=== PATIENT | male | born 1945 | race Caucasian/White ===

== ENCOUNTER → 2016-11-02 | Outpatient (CLI) | payer MEDICARE | LOC: GMAM 10:36 | PROVIDERS: ATTEND Family Medicine | DX: R53.82 Chronic fatigue, unspecified (principal) ==

== ENCOUNTER → 2016-11-12 | Outpatient (CLI) | payer MEDICARE, BC ==
--- NOTE | 2016-11-12 10:22 | CT ---
EXAM DESCRIPTION: Chest w/Contrast CLINICAL HISTORY: ABNORMAL CXR COMPARISON: None. TECHNIQUE: Post contrasted multidetector CT imaging of the chest. Multiplanar reconstructions were provided. FINDINGS: The axilla are clear. Supraclavicular soft tissues are unremarkable. Subcutaneous infusing catheter noted. Tip is in the SVC. Heart size is unremarkable. No pericardial disease. No lymphadenopathy within the mediastinum. No hilar lymphadenopathy. There is a spiculated masslike area seen lateral to the right hilum within the right upper lobe. This measures 2.2 cm in diameter. Minimal pleural thickening noted. IMPRESSION: Today's exam demonstrates a wedge-shaped spiculated area consolidation within the base of the right upper lobe. The differential based on the shape and border could include focal pneumonia, a pulmonary infarct from pulmonary embolus or a malignancy. After treatment I would recommend close interval follow-up with repeat CT in 2-3 months to document resolution. Electronically signed by: Fernando Paula MD 11/12/2016 10:21 AM CDT
== END | disposition home or self-care (01) ==
LOC: CT 08:34
PROVIDERS: ATTEND Family Medicine
DX: R93.8 Abnormal findings on diagnostic imaging of other specified body structures (principal)

== ENCOUNTER 2016-11-13 23:19 | Inpatient (IN) | payer MEDICARE, BC ==
--- NOTE | 2016-11-13 23:45 | ED.PDOC ---
History of Present Illness - General Chief Complaint: Respiratory Problem Stated Complaint: cough,sob Time Seen by Provider: 11/13/16 23:37 Source: patient Exam Limitations: no limitations - History of Present Illness Initial Comments: Janak Patel 71 y/o male with history of afib and seasonal allergies dm2 stated that he had been having non productive cough for 10 days and was seen by his md this morning regarding his chest CT report showing right upper lobe spiculated mass differential dx focal pna,pulmonary infarct or malignancy.He was sent home no medication prescribed and tonight cough got worse and getting more sob and had low grade fever decided to come to er. Timing/Duration: other - 10 days ago Severity: moderate Possible Cause: chronic episodes Improving Factors: nothing Worsening Factors: nothing Associated Symptoms: fever/chills, shortness of breath, wheezing Respiratory Risk Factors: exposure to allergen Allergies/Adverse Reactions: Allergies NO KNOWN ALLERGY Allergy (Verified 11/13/16 23:44) Home Medications: Ambulatory Orders Carvedilol [Coreg] 3.125 mg PO BID 07/01/15 Fluoxetine HCl [Prozac] 30 mg PO DAILY 07/01/15 Lasix mg PO DAILY 07/01/15 Lisinopril 20 mg PO DAILY 07/01/15 Omeprazole Magnesium [Prilosec Otc] 20 mg PO ACBK 07/01/15 Sotalol HCl [Betapace] 60 mg PO BID 07/01/15 Warfarin Sodium [Coumadin] 5 mg PO SUTUTHSA@2100 07/01/15 Warfarin Sodium [Coumadin] 7.5 mg PO MOWEFR@2100 07/01/15 Review of Systems - Review of Systems Constitutional: States: fever EENTM: States: nose congestion Respiratory: States: cough, short of breath Cardiology: States: no symptoms reported Gastrointestinal/Abdominal: States: no symptoms reported Genitourinary: States: no symptoms reported Musculoskeletal: States: no symptoms reported Skin: States: no symptoms reported Neurological: States: no symptoms reported Endocrine: States: no symptoms reported Past Medical History (General) - Patient Medical History Hx Seizures: No Hx Stroke: No Hx Asthma: No Hx of COPD: No Hx Cardiac Disorders: Yes - A-Fib, CHF Hx Congestive Heart Failure: Yes Hx Pacemaker: Yes Hx Hypertension: Yes Hx Diabetes: Yes Hx MRSA: No Hx Other PMH: Yes - seasonal allergies Surgical History: other - aicd/pacemaker;nasal polyp surgery - Vaccination History Hx Tetanus, Diphtheria Vaccination: Yes - Social History Hx Tobacco Use: Yes - stopped age 27 years Hx Alcohol Use: Yes - quit 3 years ago Hx Substance Use: Yes - cocaine Hx Physical Abuse: No Hx Emotional Abuse: No - Activities of Daily Living Patient Lives Alone: No - family Grooming Ability: Independent Eating (Feeding) Ability: Independent Toileting Ability: Independent - Female History Patient : No Family Medical History - Family History Father Living Status: Age at (years of age): 60 Cause of : DC Hx Family Asthma: Yes - mom Hx Family Hypertension: Yes Hx Cardiac Disease: Yes - dad Mother Living Status: Hx Family Asthma: Yes Physical Exam - Physical Exam General Appearance: Alert, No apparent distress Eye Exam: bilateral normal ENT Exam: normal ENT inspection, hearing grossly normal, TMs normal, pharynx normal Neck: non-tender, full range of motion, supple Respiratory: chest non-tender, decreased breath sounds, wheezing Cardiovascular/Chest: normal peripheral pulses, regular rate, rhythm, no edema, no gallop, no JVD, no murmur Gastrointestinal/Abdominal: normal bowel sounds, non tender, soft, no organomegaly Extremity: normal range of motion, non-tender, normal inspection, no pedal edema , no calf tenderness Neurologic: no motor/sensory deficits, alert, normal mood/affect, oriented x 3 Skin Exam: normal color, warm/dry Lymphatic: no adenopathy Progress - Results/Orders Results/Orders: 11/13/16 23:47 SVN/Updraft Therapy .ONCE 11/13/16 23:51 BRI IFA Screen w/Reflex Stat RHEUMATOID FACTOR Routine 11/13/16 23:55 IV Care:Saline Lock per Protoc QSHIFT 11/14/16 09:00 [facility] Daily Laboratory Results WBC 12.2 K/mm3 (4.8-10.8) H 11/14/16 00:10 RBC 5.46 M/mm3 (4.70-6.10) 11/14/16 00:10 Hgb 14.6 gm/dL (14.0-18.0) 11/14/16 00:10 Hct 44.9 % (42.0-52.0) 11/14/16 00:10 MCV 82.3 fl (80.0-94.0) 11/14/16 00:10 MCH 26.8 pg (27.0-31.0) L 11/14/16 00:10 MCHC 32.6 g/dL (33.0-37.0) L 11/14/16 00:10 RDW 15.6 % (11.5-14.5) H 11/14/16 00:10 Plt Count 188 K/mm3 (130-400) 11/14/16 00:10 MPV 9.7 fl (7.40-10.4) 11/14/16 00:10 Absolute Neuts (auto) 9.50 K/uL (1.8-6.8) H 11/14/16 00:10 Absolute Lymphs (auto) 1.50 K/uL (1.0-3.4) 11/14/16 00:10 Absolute Monos (auto) 0.90 K/uL (0.2-0.8) H 11/14/16 00:10 Absolute Eos (auto) 0.20 K/uL (0.0-0.4) 11/14/16 00:10 Absolute Basos (auto) 0.10 K/uL (0.0-0.1) 11/14/16 00:10 Neutrophils % 78.2 % (42.0-78.0) H 11/14/16 00:10 Lymphocytes % 12.6 % (20.0-50.0) L 11/14/16 00:10 Monocytes % 7.1 % (2.0-9.0) 11/14/16 00:10 Eosinophils % 1.4 % (1.0-5.0) 11/14/16 00:10 Basophils % 0.7 % (0.0-2.0) 11/14/16 00:10 ESR 12 mm/hr (0-20) 11/14/16 00:10 PT 25.1 SECONDS (9.4-12.5) H* 11/14/16 00:10 INR 2.240 11/14/16 00:10 Sodium 136 mmol/L (135-145) 11/14/16 00:10 Potassium 4.1 mmol/L (3.6-5.0) 11/14/16 00:10 Chloride 105 mmol/L (101-111) 11/14/16 00:10 Carbon Dioxide 23 mmol/L (21-31) 11/14/16 00:10 Anion Gap 12.1 (12-18) 11/14/16 00:10 BUN 15 mg/dL (7-18) 11/14/16 00:10 Creatinine 0.93 mg/dL (0.6-1.3) 11/14/16 00:10 BUN/Creatinine Ratio 16.1 (10-20) 11/14/16 00:10 Random Glucose 130 mg/dL (70-105) H 11/14/16 00:10 Serum Osmolality 274.5 mOsm/L (275-295) L 11/14/16 00:10 Calcium 9.0 mg/dL (8.4-10.2) 11/14/16 00:10 Total Bilirubin 0.8 mg/dL (0.2-1.0) 11/14/16 00:10 AST 20 IU/L (10-42) 11/14/16 00:10 ALT 17 IU/L (10-60) 11/14/16 00:10 Alkaline Phosphatase 62 IU/L (42-121) 11/14/16 00:10 B-Natriuretic Peptide 462.0 pg/ml (0-100) H* 11/14/16 00:10 Serum Total Protein 7.4 gm/dL (6.4-8.2) 11/14/16 00:10 Albumin 3.8 g/dl (3.2-5.5) 11/14/16 00:10 Globulin 3.6 gm/dL (2.3-3.5) H 11/14/16 00:10 Albumin/Globulin Ratio 1.1 (1.1-1.9) 11/14/16 00:10 - EKG/XRAY/CT XRAY: chest - bilateral interstitial and airspace opcification multifocal pneumonia Departure - Departure Clinical Impression: Atrial fibrillation with normal ventricular rate, correction current use of anticoagulant therapy Pneumonia Qualifiers: Pneumonia type: due to unspecified organism Laterality: bilateral Lung location : unspecified part of lung Qualifier Code: (J18.9) Pneumonia, unspecified organism Time of Disposition: 01:32 - D/W Dr. Hernandez-HOSPITALIST Disposition: Admit Patient Condition: Fair Referrals: Noe Ahuja MD [Primary Care Provider] - 1-2 Weeks Home Medications: Ambulatory Orders Carvedilol [Coreg] 3.125 mg PO BID 07/01/15 Fluoxetine HCl [Prozac] 30 mg PO DAILY 07/01/15 Lasix mg PO DAILY 07/01/15 Lisinopril 20 mg PO DAILY 07/01/15 Omeprazole Magnesium [Prilosec Otc] 20 mg PO ACBK 07/01/15 Sotalol HCl [Betapace] 60 mg PO BID 07/01/15 Warfarin Sodium [Coumadin] 5 mg PO SUTUTHSA@209907/01/15 Warfarin Sodium [Coumadin] 7.5 mg PO MOWEFR@209907/01/15
[2016-11-13] MEDS ORDERED: IPRATROPIUM/ALBUTEROL 3 ML VIAL NEB ONE (23:46)
[2016-11-13] MEDS ORDERED: methylPREDNISolone SODIUM SUC 125 MG/2 ML VIAL IV ONE (23:55)
[2016-11-14] MEDS ORDERED: IPRATROPIUM/ALBUTEROL 3 ML VIAL NEB ONE ×3 (00:30→01:33)
--- NOTE | 2016-11-14 00:35 | RAD ---
EXAM: Chest,1 View CLINICAL INDICATION: 71-year-old male with cough. TECHNIQUE: Single view, AP portable chest was obtained. COMPARISON: 07/01/2015. FINDINGS: Stable cardiac and mediastinal silhouette. Heart size is top normal. Pacemaker device overlies and obscures portions of the the LEFT hemithorax with leads intact at the level of the battery pack, stable in course and termination. Tortuous thoracic aorta. Diffuse bilateral basilar airspace and interstitial opacification raising the concern for edema versus multifocal pneumonia. No gross pneumothoraces or large pleural effusion. The RIGHT costophrenic angle is not included in the [id number] of the examination. The visualized bones are within normal limits. IMPRESSION: Bilateral interstitial and airspace opacification raising the concern for multifocal pneumonia versus edema. Please correlate with patient clinical findings and follow-up for resolution. Electronically signed by: Noris Kruger MD 11/14/2016 12:34 AM CDT
[2016-11-14] MEDS ORDERED: cefTRIAXone SODIUM 1 GM in SODIUM CHL 0.9% 50ML MIN-BAG+ 50 ML IVPB ONE (01:39)
[2016-11-14] MEDS ORDERED: DOXYCYCLINE HYCLATE CAP 100 MG CAP PO ONE (01:42)
[2016-11-14] MEDS ORDERED: cefTRIAXone SODIUM 1 GM VIAL ONE ×3 (01:46→23:27)
[2016-11-14] MEDS ORDERED: SODIUM CHL 0.9% 50ML MIN-BAG+ 50 ML IVPB ONE ×3 (01:47→23:26)
[2016-11-14] MEDS ORDERED: MAGNESIUM HYDROXIDE 30 ML UD PO PRN (02:16)
[2016-11-14] MEDS ORDERED: HYDROcodone 5MG/APAP 325MG 1 EA TAB PO PRN (02:16)
[2016-11-14] MEDS ORDERED: ACETAMINOPHEN 325 MG TAB PO PRN (02:16)
[2016-11-14] MEDS ORDERED: LEVALBUTEROL NEBS 1.25 MG/3 ML VIAL INH PRN (02:16)
[2016-11-14] MEDS ORDERED: IBUPROFEN 400 MG TAB PO PRN (02:16)
[2016-11-14] MEDS ORDERED: SODIUM CHLORIDE 0.9% (FLUSH) 10 ML SYG IV PRN (02:16)
--- NOTE | 2016-11-14 02:28 | HP ---
SUPERVISING PHYSICIAN: Gareth Jeffrey M.D. CHIEF COMPLAINT: Cough and shortness of breath. HISTORY OF PRESENT ILLNESS: Mr. Patel is a 71 year-old male patient that has a history of atrial fibrillation and diabetes. He noted that he had started having a nonproductive cough for the last 10 days. He had been seen in the office with Dr. Jeffrey the previous day regarding followup on a chest x-ray having a CT of the chest for concerns for a right upper lobe spiculated mass. Questionable differential was focal pulmonary embolism versus pulmonary infarct or malignancy. He went home and the night of admission started developing a cough that worsened and he became short of breath, and had a low-grade fever at home at which time he presented to the Emergency Department. In the Emergency Department, a chest x-ray was completed and per radiology interpretation showed bilateral interstitial airspace opacification with concerns for multifocal pneumonia versus edema. His laboratory studies showed a mildly elevated white count of 12.2 with an early left shift. He also had an elevated BNP at 462. Initially in the Emergency Department he presented afebrile with a temperature of 99.5 showing saturations of 86% on room air. After breathing treatments and supplemental oxygen with nasal cannula, he improved to 93. Given the fact that he had concerns for radiographic studies showing possible pneumonia versus edema having a history of congestive heart failure with the last echocardiogram noted to be in 2013 showing an ejection fraction of 21%, the patient was admitted to continuation of treatment and evaluation. He was admitted to the Medical/Surgical floor in stable condition. PAST MEDICAL HISTORY: 1. Congestive heart failure with last estimated ejection fraction of 21 to 25 % in July 2015. 2. Hyperlipidemia. 3. Hypertension. 4. Myocardial infarction in 2012. 5. History of deep venous thrombosis of the upper extremity. 6. History of atrial fibrillation currently on Xarelto. 7. History of hiatal hernia. 8. Right upper lung mass noted 11/[address] Jeffrey. 9. Type 2 diabetes mellitus on oral therapy. 10. Gastroesophageal reflux disease. PAST SURGICAL HISTORY: 1. Cataract removal. 2. Nasal polypectomy. 3. Tonsillectomy and adenoidectomy. 4. Pacemaker defibrillator implantation. HOME MEDICATIONS: 1. Betapace 80 mg twice daily. 2. Metformin 500 mg daily. 3. Lisinopril 20 mg daily. 4. Omeprazole 20 mg at breakfast. 5. Prozac 30 mg daily. 6. Xarelto 20 mg daily. 7. Lasix 20 mg once daily. 8. Coreg 6.25 mg twice daily. ALLERGIES: NO KNOWN DRUG ALLERGIES. FAMILY HISTORY: Mother at age 72 from pneumonia. Father at age 60 from a myocardial infarction. SOCIAL HISTORY: The patient lives in [place], [place]. He is a retired master chef. He is . He does have a history of 20 pack per year history of smoking, quit at age 47. Denies any recent alcohol usage having quit in 2012. REVIEW OF SYSTEMS: CONSTITUTIONAL: Noted fever subjective at home. HEENT: Notes nasal congestion. No sore throat or headache. RESPIRATORY: Positive as noted in the History of Present Illness with a nonproductive cough and significant shortness of breath with low O2 on room air. CARDIOVASCULAR: Lengthy history of myocardial infarctions, congestive heart failure and atrial fibrillation, but denies any syncopal episodes, chest pains, palpitations. GENITOURINARY: Denies any increase in frequency, dysuria or other urinary symptoms. NEUROLOGIC: Denies any vision changes, headaches, syncopal episodes or neurological deficits. PHYSICAL EXAMINATION: VITAL SIGNS: Temperature on admission was 99.5, pulse 101, blood pressure 141/ 83, satting 86 to 89% on room air with respirations between 18 to 22 with obvious shortness of breath initially. Upon admission to the Medical/Surgical floor, the patient was afebrile with temperature 98, pulse 89, blood pressure 120/79, O2 saturations were showing 94% on nasal cannula at rest with 1 liter. Admission weight 110.4 kg. GENERAL: The patient appears to be well nourished, well hydrated and is in no acute distress at time of exam. He is alert and oriented. HEENT: Tympanic membranes are clear bilaterally. Oropharynx is pink with mucosal membranes moist. NECK: No jugular venous distention. Neck is supple with full range of motion. CHEST: Lung sounds are decreased towards the bases bilaterally but no obvious rhonchi, wheezing or rales are noted. CARDIOVASCULAR: Regular rate and rhythm without any appreciable murmurs, gallops, or rubs. ABDOMEN: Obese but soft, non-tender. Positive bowel sounds. EXTREMITIES: No clubbing, cyanosis or edema. NEUROLOGIC: Cranial nerves II-XII are grossly intact. Facial features are symmetrical. Extraocular movements are within normal limits. There is no nystagmus. There is no notable motor or sensory deficits. He is alert and oriented times three. LABORATORY: White count on admission was 12.2, hemoglobin 14.6, hematocrit 44.9 , platelet count 188,000. Differential shows a left shift. Coagulation studies showed an INR of 2.24 with PT of 25.1. Chemistries show normal electrolytes with potassium 4.1, BUN 15, creatinine 0.9, glucose 130. Liver functions show to be within normal limits with BNP that was elevated at 462. Urinalysis showed 100 glucose with 15 ketones. Microscopic showed to be within normal limits. MICROBIOLOGY: Blood culture is pending times 2. Sputum culture is pending. RADIOLOGY: Chest x-ray on admission to the Emergency Department per radiology interpretation single view chest shows bilateral interstitial and airspace opacification raising concerns for multifocal pneumonia versus edema. ASSESSMENT: 1. Bibasilar pneumonia with the patient showing hypoxemia on admission versus acute exacerbation of congestive heart failure. 2. Acute on chronic congestive heart failure secondary to nonischemic cardiomyopathy with last echocardiogram in 2015 showing an ejection fraction of 35%. 3. Atrial fibrillation with current normal ventricular rate on watermelon inspector anticoagulant therapy with Coumadin and implanted defibrillator pacemaker. He has an ICD in place. 4. Hypertension. 5. Diabetes mellitus type 2 on oral therapy. 6. Gastroesophageal reflux disease. 7. History of recent abnormal CT of the chest indicating a spiculated mass right upper lobe being followed in the outpatient setting by Dr. Jeffrey. 8. Leukocytosis with concerns for early development of pneumonia likely community acquired requiring oxygen supplementation and bronchodilator therapy. PLAN: The patient will be admitted to the hospital for continuation of treatment with concerns for development of pneumonia versus underlying pulmonary edema from acute exacerbation of congestive heart failure. He will be given an extra dose of Lasix this morning IV 40 mg and closely monitored, and also placed on a fluid restriction less than 1500 mL for a 24 hour period. He will also be started on antibiotics which were initiated in the Emergency Department after blood cultures were completed which include Rocephin and Levaquin. He will be given q.i.d. DuoNeb treatments and aggressive pulmonary hygiene, and await culture results from the sputum. Anticipate length of stay to be 2 to 3 days. Once the patient is clinically improved and able to be discharged to continue with outpatient treatment plan, he will need close clinical followup with his primary care physician, Dr. Jeffrey. Until then, will follow the patient closely and treat appropriately. #[id number] and [id number] [facility]
[2016-11-14] MEDS ORDERED: AZITHROMYCIN 250 MG TAB PO SCH (02:30)
[2016-11-14] MEDS ORDERED: IV SET AND CAP CHANGE INJ INJ SCH (02:30)
[2016-11-14] MEDS ORDERED: SODIUM CHLORIDE 0.9% 1000ML 1,000 ML IVS PRN (02:39)
[2016-11-14] MEDS: levoFLOXacin 500MG IV 500 MG in PREMIX BAG 1 BAG IVPB SCH (03:00)
[2016-11-14] MEDS ORDERED: levoFLOXacin 500MG IV 100 ML IVPB ONE ×2 (03:01→23:27)
[2016-11-14] MEDS: OMEPRAZOLE CAP 20 MG CAP PO SCH (05:48)
[2016-11-14] MEDS ORDERED: LISINOPRIL 10 MG TAB ONE (07:24)
[2016-11-14] MEDS ORDERED: FUROSEMIDE INJ 40 MG/4 ML VIAL IV ONE (08:20)
[2016-11-14] MEDS: IPRATROPIUM/ALBUTEROL 3 ML VIAL INH SCH ×4 (08:33→20:28)
[2016-11-14] MEDS ORDERED: FUROSEMIDE 40 MG TAB PO SCH (09:00)
[2016-11-14] MEDS ORDERED: SOTALOL HCL 60 MG PO SCH (09:00)
[2016-11-14] MEDS: CARVEDILOL 3.125 MG TAB PO SCH ×3 (09:14→23:04)
[2016-11-14] MEDS: SODIUM CHLORIDE 0.9% (FLUSH) 10 ML SYG IV SCH ×2 (09:14→20:45)
[2016-11-14] MEDS: LISINOPRIL 10 MG TAB PO SCH (09:14)
[2016-11-14] MEDS: SOTALOL 80 MG TAB PO SCH ×2 (10:51→20:45)
[2016-11-14] MEDS: cefTRIAXone SODIUM 1 GM in SODIUM CHL 0.9% 50ML MIN-BAG+ 50 ML IVPB SCH (14:30)
[2016-11-14] MEDS ORDERED: WARFARIN SODIUM 5 MG TAB ONE (19:36)
[2016-11-14] MEDS ORDERED: WARFARIN SODIUM 2.5 MG TAB ONE (19:36)
[2016-11-14] MEDS ORDERED: SODIUM CHLORIDE 0.9% 1000ML 1,000 ML ONE (19:38)
[2016-11-14] MEDS ORDERED: WARFARIN SODIUM 2.5 MG TAB PO SCH (21:00)
[2016-11-14] MEDS ORDERED: WARFARIN SODIUM 7.5 MG PO SCH (21:00)
[2016-11-14] MEDS ORDERED: WARFARIN SODIUM 5 MG TAB PO SCH (21:00)
--- NOTE | 2016-11-14 22:43 | PCM.CORE ---
Physician DVT/VTE - Prophylaxis Currently: Patient already on anticoagulation therapy - Nurse DVT Assessment & Total Each Risk Factor Represents 2 Points: Age 60-74 Each Risk Factor is 1 Point: Obesity (BMI >25) DVT Assessment Score: 3 - 3-4 High Risk Treatments: Early Ambulation *, Sequential Compression Device
[2016-11-14] MEDS ORDERED: RIVAROXABAN 10 MG TAB ONE (22:53)
[2016-11-14] MEDS: [UNRECOGNIZED DRUG - OTHER] PO SCH (22:58)
[2016-11-14] MEDS ORDERED: NON-FORMULARY MEDICATION 1 EA MIS (Carvedilol [Coreg] 6.25 MG) PO SCH (23:00)
[2016-11-14] MEDS ORDERED: metFORMIN HCL 500 MG TAB PO SCH (23:00)
[2016-11-14] MEDS: RIVAROXABAN 15 MG TAB PO ONE ×2 (23:03→23:12)
[2016-11-14] MEDS ORDERED: RIVAROXABAN 10 MG TAB PO SCH (23:30)
[2016-11-15] MEDS: cefTRIAXone SODIUM 1 GM in SODIUM CHL 0.9% 50ML MIN-BAG+ 50 ML IVPB SCH ×2 (01:28→13:56)
[2016-11-15] MEDS ORDERED: diphenhydrAMINE HCL 25 MG CAP PO ONE (01:34)
[2016-11-15] MEDS: levoFLOXacin 500MG IV 500 MG in PREMIX BAG 1 BAG IVPB SCH (02:38)
[2016-11-15] MEDS: OMEPRAZOLE CAP 20 MG CAP PO SCH (06:19)
--- NOTE | 2016-11-15 07:01 | RAD ---
Clinical History : Pneumonia , MAIN Exam : PA and lateral views of the chest 11/15/2016 7:00 AM CDT Comparisons : Portable AP view of the chest November 14, 2016 Findings : There is a stable focal airspace opacity in the right mid lung laterally. There is blunting of the bilateral costophrenic angles consistent with trace pleural effusions. . The heart is stable in size. The mediastinal contours are normal in appearance. There is a left chest [address] The thoracic spine is age appropriate. The shoulders are unremarkable. Limited evaluation of the upper abdomen demonstrates no gross abnormalities. Impression: 1. Stable focal airspace opacity in the right mid lung laterally. 2. Trace bilateral pleural effusions. Electronically signed by: Jonn Hernandez MD 11/15/2016 7:01 AM CDT
[2016-11-15] MEDS: IPRATROPIUM/ALBUTEROL 3 ML VIAL INH SCH ×2 (07:40→12:35)
[2016-11-15] MEDS ORDERED: FLUoxetine HCL 20 MG CAP ONE (08:26)
[2016-11-15] MEDS ORDERED: FLUoxetine HCL 10 MG CAP PO ONE (08:26)
[2016-11-15] MEDS ORDERED: CARVEDILOL 3.125 MG TAB PO SCH (09:00)
[2016-11-15] MEDS ORDERED: metFORMIN HCL 500 MG TAB PO SCH (09:00)
[2016-11-15] MEDS ORDERED: FLUoxetine HCL 20 MG CAP PO SCH ×2 (09:00)
[2016-11-15] MEDS ORDERED: FLUoxetine HCL 10 MG CAP PO SCH (09:00)
[2016-11-15] MEDS: [UNRECOGNIZED DRUG - OTHER] PO SCH (09:35)
[2016-11-15] MEDS: LISINOPRIL 10 MG TAB PO SCH (09:35)
[2016-11-15] MEDS: SODIUM CHLORIDE 0.9% (FLUSH) 10 ML SYG IV SCH (09:36)
[2016-11-15] MEDS: SOTALOL 80 MG TAB PO SCH (09:36)
[2016-11-15] MEDS ORDERED: ALUM & MAG HYDROX-SIMETHICONE 30 ML UD PO PRN (10:37)
[2016-11-15 10:42] VITALS: TEMP 97
[2016-11-15] MEDS ORDERED: cefTRIAXone SODIUM 1 GM VIAL ONE (12:49)
[2016-11-15] MEDS ORDERED: SODIUM CHL 0.9% 50ML MIN-BAG+ 50 ML IVPB ONE (12:49)
[2016-11-15 14:50] VITALS: BP 116/77; O2SAT 94
[2016-11-15] MEDS ORDERED: XARELTO 20 MG PO SCH (21:00)
[2016-11-15] MEDS ORDERED: WARFARIN SODIUM 5 MG TAB PO SCH (21:00)
--- NOTE | 2016-11-18 21:47 | DS ---
SUPERVISING PHYSICIAN: Gareth Jeffrey M.D. DISCHARGE DIAGNOSIS: 1. Bibasilar pneumonia with the patient showing hypoxemia on admission versus exacerbation of his congestive heart failure felt to be more likely related to congestive heart failure. 2. Acute on chronic congestive heart failure secondary to nonischemic cardiomyopathy with last echocardiogram in 2016 showing an ejection fraction of 35%. 3. Atrial fibrillation with admission EKG showing normal ventricular rate having been on intermediate manager anticoagulation therapy with Coumadin as well as an ICD in place. 4. Hypertension. 5. Diabetes mellitus type 2 on oral therapy. 6. Gastroesophageal reflux disease. 7. History of recent abnormal CT of the chest showing a spiculated mass of the right upper lobe that has been followed in the outpatient setting by Dr. Jeffrey. 8. Leukocytosis with initial concerns for the development of pneumonia which was likely community acquired requiring ongoing oxygen supplementation and bronchodilator therapy. HISTORY OF PRESENT ILLNESS: Mr. Patel is a 71 year-old male patient that has a history of atrial fibrillation and diabetes. He noted that he had started having a nonproductive cough 10 days previous to admission. He had been seen in the office by Dr. Jeffrey the previous day regarding followup on a chest x-ray and then had a CT of the chest with concerns for a right upper lobe spiculated mass. Questionable differential was focal pulmonary embolism versus pulmonary infarct or malignancy. He went home and the night of admission started developing a cough that worsened and he became short of breath as well as had a low-grade fever at home at which time he presented to the Emergency Department. In the Emergency Department, a chest x-ray was completed and per radiology interpretation showed bilateral interstitial airspace opacification with concerns for multifocal pneumonia versus edema. His laboratory studies showed a mildly elevated white count of 12.2 with an early left shift. He also had an elevated BNP at 462. Initially in the Emergency Department he presented afebrile with a temperature of 99.5 showing saturations of 86% on room air. After breathing treatments and supplemental oxygen with nasal cannula, he improved to 93%. Given the fact that there were concerns for radiographic studies showing possible pneumonia versus edema and having a history of congestive heart failure with the last echocardiogram noted to be in 2016 showing an ejection fraction of 21%, the patient was admitted for continuation of treatment and evaluation. He was admitted to the Medical/Surgical floor in stable condition. LABORATORY STUDIES: White count was elevated on admission and remained so through discharge at 12.4. Hemoglobin and hematocrit were stable at 13.4 and 40.3, platelet count 178,000. He did have a left shift that was resistant. Coagulation studies showed PT 25.1 on admission with INR of 2.24 with discharge INR of 1.6. Chemistries showed sodium 133 at discharge with potassium 4.4, BUN 16, creatinine 0.86, calcium 8.3. He did have a BNP elevated at 462. Liver functions otherwise were within normal limits. Urinalysis showed 100 glucose and 15 ketones. Microscopic showed to be within normal limits. He had a rheumatoid factor that was 10 and an BRI screen that was negative. Blood cultures times 2 remained negative at 4 days. No sputum culture was ever submitted. RADIOLOGY: Initial chest x-ray in the Emergency Department showed per radiology interpretation bilateral interstitial and airspace opacification raising concerns for multifocal pneumonia versus edema. This was followed-up with a repeat chest x-ray on the morning of discharge on 11/15/16 and per radiology interpretation showed stable focal airspace opacification in the right middle lung laterally and a trace of bilateral pleural effusions. HOSPITAL COURSE: Mr. Patel was admitted from the Emergency Department as noted for concerns for bilateral pneumonia versus pulmonary edema. He was initially started on prednisone in the Emergency Department as well as bronchodilator therapy with DuoNeb treatments as well as antibiotic coverage with Levaquin and Azithromycin. He was given Lasix 40 mg IV the morning of admission and had good diuresis. His Xarelto was continued as previous to admission and all other medications as well. He did well clinically and was felt well enough to be discharged on the morning of discharge as it was felt that his symptomology was secondary to acute on chronic congestive heart failure with some pulmonary edema, less likely a pneumonia process. However, given the fact that he did have a slightly elevated white count, antibiotics were continued at time of discharge. PLAN: Mr. Patel was discharged on 11/15/16 to have close clinical followup with Dr. Jeffrey in 2 weeks or earlier if needed and to have close clinical followup arranged through Dr. Jeffrey's office with his pharmacy director, Dr. Cardenas in 1 to 2 weeks, again earlier if needed. He was instructed to resume his home medications as instructed and return to the hospital should he have concerning symptoms or failure to show any improvement. He is encourage to restrict his daily fluids to less than 1800 mL in a 24 hour period. He was started on new prescriptions at time of discharge to include: 1. Potassium chloride, K-Dur 20 mEq daily at breakfast, #30. 2. Lasix 20 mg daily, #30. Continue with his antibiotic therapy to include Levaquin 500 mg for a total of 8 days. All other medications were resumed as per prior to admission. He was discharged with diet to include low fat, low salt, cardiac diet. Activity was to increase activity as tolerated, to do no strenuous exercising until he was seen in followup. Condition at discharge was stable. #[id number] [facility]
== END 2016-11-15 15:37 | disposition home or self-care (01) | DRG 291 ==
LOC: ER 23:19 → OBSVTOIN 11-14 02:26 → MS 11-14 02:26
PROVIDERS: ADMIT Emergency Medicine; ATTEND Nurse Practitioner Family
DX: I11.0 Hypertensive heart disease with heart failure (principal); J18.9 Pneumonia, unspecified organism; I50.9 Heart failure, unspecified; I42.8 Other cardiomyopathies; I48.91 Unspecified atrial fibrillation; K21.9 Gastro-esophageal reflux disease without esophagitis; R91.8 Other nonspecific abnormal finding of lung field; E78.5 Hyperlipidemia, unspecified; K44.9 Diaphragmatic hernia without obstruction or gangrene; E11.9 Type 2 diabetes mellitus without complications; Z79.01 Long term (current) use of anticoagulants; Z95.810 Presence of automatic (implantable) cardiac defibrillator; Z79.84 Long term (current) use of oral hypoglycemic drugs; I25.2 Old myocardial infarction; Z86.718 Personal history of other venous thrombosis and embolism; Z79.899 Other long term (current) drug therapy; Z87.891 Personal history of nicotine dependence

== ENCOUNTER → 2016-12-24 | Outpatient (CLI) | payer MEDICARE, BC ==
--- NOTE | 2016-12-24 11:14 | CT ---
EXAM DESCRIPTION: Chest w/o Contrast CLINICAL HISTORY: 71 years, Male, PULMONARY NODULE COMPARISON: November 12, 2016 TECHNIQUE: Thin-section noncontrast axial CT images are obtained according to our protocol. Reconstructed MPR images are created and reviewed as well. This exam was performed according to our departmental dose-optimization program, which includes automated exposure control, adjustment of the mA and/or kV according to patient size and/or use of iterative reconstruction technique. FINDINGS: Spiculated pulmonary nodule is present in the right upper lobe just above the minor fissure. This spiculated pulmonary nodule measures 2.6 x 2.1 x 1.9 cm in size and is concerning for primary bronchogenic carcinoma. There is no other nodule observed. There is no effusion. Suspicious mediastinal lymphadenopathy is present along the right anterolateral margin of the trachea. The largest node is approximately 1.5 cm in size. Since the previous study from November 12 strandy changes surrounding this spiculated nodule have decreased. IMPRESSION: 1. Spiculated right upper lobe pulmonary nodule worrisome for bronchogenic carcinoma. Pulmonary consultation is recommended. This nodule may be accessible for bronchoscopic biopsy or bronchoalveolar lavage. CT-guided biopsy would also be feasible. Electronically signed by: Brooks Diaz MD 12/24/2016 11:13 AM CDT
== END | disposition home or self-care (01) ==
LOC: CT 08:27
PROVIDERS: ATTEND Internal Medicine
DX: R91.1 Solitary pulmonary nodule (principal)

== ENCOUNTER 2016-12-28 13:02 | Emergency (ER) | payer MEDICARE, BC ==
--- NOTE | 2016-12-28 14:10 | RAD ---
EXAM DESCRIPTION: Chest,2 Views CLINICAL HISTORY: 2d post ablation with shortness of breath COMPARISON: November 15, 2016 FINDINGS: Two-view chest x-ray shows mild enlargement of the cardiac silhouette without pulmonary vascular congestion. Left subclavian transvenous cardiac pacer defibrillator is stable. The lungs are mildly increased aeration. More prominent focus of increased density in the right mid lung is seen in the area of interstitial thickening on previous exam. Left lung is clear. Costophrenic angles are sharp. Mild spondylitic changes of the spine are seen. IMPRESSION: More localized area of increased density in the right mid chest is spiculated on recent CT scan of the chest worrisome for bronchogenic carcinoma. No pneumothorax or new infiltrate is seen. Electronically signed by: Boby Rosenthal MD 12/28/2016 2:10 PM CDT
--- NOTE | 2016-12-28 18:15 | ED.PDOC ---
History of Present Illness - General Chief Complaint: Cardiovascular Problem Stated Complaint: Exertional dyspnea, chest tightness Time Seen by Provider: 12/28/16 13:12 Source: patient Exam Limitations: no limitations - History of Present Illness Initial Comments: the patient is a 71-year-old male presenting to the emergency room secondary to a feeling of mild progressive shortness of breath and continued fatigue. These have been long-standing problems with him over the last year and have been largely related to medications required for heart rate and rhythm control. The patient had an ablation 2 days ago. The ablation apparently went well. He has had no new swelling. He is not having any chest pain. He reports that his blood pressures normally run in the 1 teens on the systolic end and that is what they are here today. He however does have a positive tilt with a 23 point drop in his systolic blood pressure without any corresponding rise in his pulse. he is reporting some mild dizziness when he goes to stand up. He is not having any shortness of breath while resting but he does get short of breath with activity. No palpitations. Again no chest pain. He feels weak when he tries to be active. Again these are not new symptoms but he does feel they are somewhat progressive. Timing/Duration: unsure Severity: moderate Improving Factors: nothing, rest Worsening Factors: movement Associated Symptoms: shortness of breath Allergies/Adverse Reactions: Allergies NO KNOWN ALLERGY Allergy (Verified 12/28/16 13:49) Home Medications: Ambulatory Orders Fluoxetine HCl [Prozac] 20 mg PO DAILY 07/01/15 Omeprazole Magnesium [Prilosec Otc] 20 mg PO ACBK 07/01/15 Sotalol HCl [Betapace] 160 mg PO BID 07/01/15 Carvedilol [Coreg] 6.25 mg PO BID 11/14/16 Metformin HCl 500 mg PO BID 11/14/16 Mexiletine HCl 150 mg PO BID 11/14/16 Aspirin [Aspirin EC] 81 mg PO DAILY 12/28/16 Diphenhydramine-Acetaminophen [Acetaminophen Pm Extra St 500-25 mg] 1 - 2 tab PO BEDTIME PRN 12/28/16 Sacubitril-Valsartan [Entresto 49-51 mg] 1 tab PO BID 12/28/16 Review of Systems - Review of Systems Constitutional: States: malaise, weakness EENTM: States: no symptoms reported Respiratory: States: short of breath - ith activity Cardiology: States: no symptoms reported Gastrointestinal/Abdominal: States: no symptoms reported Genitourinary: States: no symptoms reported Musculoskeletal: States: no symptoms reported Skin: States: no symptoms reported Neurological: States: depressed Endocrine: States: no symptoms reported All other Systems: No Change from Baseline Past Medical History (General) - Patient Medical History Hx Seizures: No Hx Stroke: No Hx Asthma: No Hx of COPD: No Hx Cardiac Disorders: Yes - [place]; cardiac ablation Hx Congestive Heart Failure: No Hx Pacemaker: Yes Hx Hypertension: Yes Hx Diabetes: No Hx Gastroesophageal Reflux: Yes Hx MRSA: No - Vaccination History Hx Tetanus, Diphtheria Vaccination: Yes Hx Influenza Vaccination: No Hx Pneumococcal Vaccination: No - Social History Hx Tobacco Use: Yes - Quit 1986 Hx Alcohol Use: No Hx Substance Use: No Hx Physical Abuse: No Hx Emotional Abuse: No - Female History Patient : No Family Medical History - Family History Father Living Status: Age at (years of age): 60 Cause of : [place] Hx Family Asthma: Yes - mom Hx Family Hypertension: Yes Hx Cardiac Disease: Yes - dad Mother Family History: Unknown Living Status: Hx Family Asthma: Yes Physical Exam - Physical Exam General Appearance: Alert, Comfortable, No apparent distress Eye Exam: bilateral normal Ears, Nose, Throat: normal ENT inspection, normal pharynx Neck: full range of motion, supple, normal inspection Respiratory: chest non-tender, lungs clear, normal breath sounds, no respiratory distress, no accessory muscle use Cardiovascular/Chest: normal peripheral pulses, regular rate, rhythm, no edema Peripheral Pulses: radial,right: 2+, radial,left: 2+, dorsalis pedis,right: 2+, dorsalis pedis,left: 2+, posterior tibialis,right: 2+, posterior tibialis,left: 2+ Gastrointestinal/Abdominal: non tender, soft Rectal Exam: deferred Back Exam: normal inspection, no CVA tenderness, no vertebral tenderness Extremity: normal range of motion, non-tender, normal inspection, no pedal edema , normal capillary refill Neurologic: alert, normal mood/affect, oriented x 3 Skin Exam: normal color Comments: Vital Signs - 24 hr 12/28/16 12/28/16 12/28/16 13:41 14:05 14:10 Temperature 97.2 F L Pulse Rate [ 80 75 78 Apical] Respiratory 14 12 14 Rate Blood Pressure 127/84 119/73 114/72 [Left Arm] O2 Sat by Pulse 91 L 93 L 95 Oximetry 12/28/16 12/28/16 12/28/16 14:15 15:10 16:52 Temperature Pulse Rate [ 93 H 77 71 Apical] Respiratory 14 14 16 Rate Blood Pressure 94/66 113/78 123/85 [Left Arm] O2 Sat by Pulse 94 L 93 L 94 L Oximetry Progress - Progress Progress: 12/28/16 18:17 the patient is a 71-year-old male presenting to the emergency room secondary to progressive malaise and weakness and dyspnea on exertion. The patient is tilt positive. I'm going to have him discontinue his Coreg as he is still taking sotalol. He needs to maintain a symptom diary for his self pay specialist. He also needs to record his blood pressures 4 times a day at rest. He has remained on telemetry monitoring here for approximately 5 hours and he appears to be in a normal sinus rhythm. No evidence of any superimposed infection was found. Cardiac enzymes were trending downward since his ablation. He needs to keep follow-up with his primary care doctor early next week and with his self pay specialist as previously scheduled. ER warnings were given for any acute worsening.he should also increase his fluid intake over the next 2 -3 days only. - Results/Orders Results/Orders: Laboratory Tests 12/28/16 12/28/16 12/28/16 14:02 14:02 14:02 WBC 7.3 RBC 5.37 Hgb 14.7 Hct 44.5 MCV 82.9 MCH 27.4 MCHC 33.1 RDW 15.4 H Plt Count 170 MPV 9.3 Absolute Neuts (auto) 4.90 Absolute Lymphs (auto) 1.60 Absolute Monos (auto) 0.50 Absolute Eos (auto) 0.20 Absolute Basos (auto) 0.10 Neutrophils % 68.0 Lymphocytes % 21.5 Monocytes % 6.8 Eosinophils % 2.5 Basophils % 1.2 PT 18.4 H INR 1.640 PTT (SP) 39.9 H Sodium 138 Potassium 4.1 Chloride 104 Carbon Dioxide 28 Anion Gap 10.1 L BUN 8 Creatinine 0.92 BUN/Creatinine Ratio 8.7 L Random Glucose 164 H Serum Osmolality 277.6 Calcium 9.3 Total Bilirubin 0.6 AST 33 ALT 27 Alkaline Phosphatase 56 Creatine Kinase 106 CK-MB (CK-2) 4.5 H CK-MB (CK-2) % Not Reportable Troponin I 1.08 H* B-Natriuretic Peptide 127.0 H Serum Total Protein 7.4 Albumin 3.9 Globulin 3.5 Albumin/Globulin Ratio 1.1 Urine Color Urine Appearance Urine pH Ur Specific [place] Urine Protein Urine Glucose (UA) Urine Ketones Urine Blood Urine Nitrite Urine Bilirubin Urine Urobilinogen Ur Leukocyte Esterase Urine RBC Urine WBC Ur Epithelial Cells Urine Bacteria 12/28/16 12/28/16 14:05 17:02 WBC RBC Hgb Hct MCV MCH MCHC RDW Plt Count MPV Absolute Neuts (auto) Absolute Lymphs (auto) Absolute Monos (auto) Absolute Eos (auto) Absolute Basos (auto) Neutrophils % Lymphocytes % Monocytes % Eosinophils % Basophils % PT INR PTT (SP) Sodium Potassium Chloride Carbon Dioxide Anion Gap BUN Creatinine BUN/Creatinine Ratio Random Glucose Serum Osmolality Calcium Total Bilirubin AST ALT Alkaline Phosphatase Creatine Kinase 97 CK-MB (CK-2) 4.1 CK-MB (CK-2) % Not Reportable Troponin I 1.04 H* B-Natriuretic Peptide Serum Total Protein Albumin Globulin Albumin/Globulin Ratio Urine Color Yellow Urine Appearance Clear Urine pH 6.5 Ur Specific [place] 1.015 Urine Protein Negative Urine Glucose (UA) Negative Urine Ketones Negative Urine Blood Trace-lysed H Urine Nitrite Negative Urine Bilirubin Negative Urine Urobilinogen 0.2 Ur Leukocyte Esterase Negative Urine RBC 0-1 Urine WBC 0 Ur Epithelial Cells 0 Urine Bacteria 0 EKG shows normal sinus rhythm. It is a paced ventricular rhythm. Difficult to interpret otherwise. No evidence of significant ST segment elevation or depression. Chest x-ray shows no focal infiltrate. There is the persistent leftmedial lung nodule. Departure - Departure Clinical Impression: Orthostasis Disposition: Discharge to Home or Self Care Condition: Fair Departure Forms: ED Discharge - Pt. Copy, Patient Portal Self Enrollment Instructions: DI for Orthostatic Hypotension Diet: low salt diet Activity: increase activity as tolerated Referrals: Gareth Jeffrey MD [Primary Care Provider] - 1-5 Days Home Medications: Ambulatory Orders Fluoxetine HCl [Prozac] 20 mg PO DAILY 07/01/15 Omeprazole Magnesium [Prilosec Otc] 20 mg PO ACBK 07/01/15 Sotalol HCl [Betapace] 160 mg PO BID 07/01/15 Carvedilol [Coreg] 6.25 mg PO BID 11/14/16 Metformin HCl 500 mg PO BID 11/14/16 Mexiletine HCl 150 mg PO BID 11/14/16 Aspirin [Aspirin EC] 81 mg PO DAILY 12/28/16 Diphenhydramine-Acetaminophen [Acetaminophen Pm Extra St 500-25 mg] 1 - 2 tab PO BEDTIME PRN 12/28/16 Sacubitril-Valsartan [Entresto 49-51 mg] 1 tab PO BID 12/28/16 Additional Instructions: the patient is a 71-year-old male presenting to the emergency room secondary to progressive malaise and weakness and dyspnea on exertion. The patient is tilt positive. I'm going to have him discontinue his Coreg as he is still taking sotalol. He needs to maintain a symptom diary for his self pay specialist. He also needs to record his blood pressures 4 times a day at rest. He has remained on telemetry monitoring here for approximately 5 hours and he appears to be in a normal sinus rhythm. No evidence of any superimposed infection was found. Cardiac enzymes were trending downward since his ablation. He needs to keep follow-up with his primary care doctor early next week and with his self pay specialist as previously scheduled. ER warnings were given for any acute worsening.he should also increase his fluid intake over the next 2 -3 days only.
[2016-12-28 18:33] VITALS: BP 108/52; TEMP 97.9; O2SAT 93
== END 2016-12-28 18:30 | disposition home or self-care (01) ==
LOC: ER 13:02
DX: I95.1 Orthostatic hypotension (principal); I25.2 Old myocardial infarction; I10 Essential (primary) hypertension; K21.9 Gastro-esophageal reflux disease without esophagitis; Z95.0 Presence of cardiac pacemaker; R91.1 Solitary pulmonary nodule; Z87.891 Personal history of nicotine dependence; Z82.49 Family history of ischemic heart disease and other diseases of the circulatory system; Z79.82 Long term (current) use of aspirin; Z79.899 Other long term (current) drug therapy

== ENCOUNTER → 2017-04-05 | Outpatient (CLI) | payer MEDICARE, BC | END | disposition home or self-care (01) | LOC: GMAM 12:26 | PROVIDERS: ATTEND Family Medicine | DX: Z12.5 Encounter for screening for malignant neoplasm of prostate (principal) ==

== ENCOUNTER → 2017-09-17 | Outpatient (CLI) | payer MEDICARE, BC | LOC: GMAM 16:34 | PROVIDERS: ATTEND Family Medicine | DX: E29.8 Other testicular dysfunction (principal) ==

== ENCOUNTER 2018-09-09 09:55 | Emergency (ER) | payer MEDICARE ==
[2018-09-09] MEDS ORDERED: SODIUM CHLORIDE 0.9% (FLUSH) 10 ML SYG IV PRN (10:14)
--- NOTE | 2018-09-09 10:29 | ED.PDOC ---
History of Present Illness - General Chief Complaint: General Stated Complaint: defib went off Time Seen by Provider: 09/09/18 10:13 Source: patient, family Exam Limitations: no limitations - History of Present Illness Initial Comments: ICD DISCHARGED THIS AM WHILE PT WAS STILL ASLEEP. PT FEELS MILDLY WEAK SINCE THE SHOCK BUT NOT OTHER SX. NO CP/SOB. PT WAS ASX WHEN THE DISCHARGE OCCURRED. ICD IS FOR A H/O V FIB. ICD PLACED APPROX 10 YRS AGO. HE HAD IT CHECKED AT A ROUTINE F/U LAST WEEK AND IT WAS FUNCTIONING WELL. PT ALSO HAS A LEFT VENTRICULAR ASSIST DEVICE (LVAD) FOR END STAGE CHF. PT HAS NO S/SX TODAY OF ACUTE HEART FAILURE EXACERBATION. PMH: NIDDM, CHF, H/O VFIB. Timing/Duration: 1-3 hours Severity: moderate Improving Factors: nothing Worsening Factors: nothing Associated Symptoms: weakness Allergies/Adverse Reactions: Allergies NO KNOWN ALLERGY Allergy (Verified 09/09/18 10:08) Home Medications: Ambulatory Orders Fluoxetine HCl [Prozac] 20 mg PO DAILY 07/01/15 Omeprazole Magnesium [Prilosec Otc] 20 mg PO ACBK 07/01/15 Carvedilol [Coreg] 6.25 mg PO BID 11/14/16 Mexiletine HCl 150 mg PO TID 11/14/16 Aspirin [(None)] 325 mg PO QD 09/09/18 Calcium Carbonate [Chewable Calcium] 500 mg PO TID 09/09/18 Cetirizine HCl [Zyrtec Allergy] 10 mg PO DAILY 09/09/18 Furosemide [Lasix] 20 mg PO .2XWK 09/09/18 Lisinopril 5 mg PO DAILY 09/09/18 Multiple Vitamin [Multi Vitamin] 1 tab PO DAILY 09/09/18 SITagliptin [Januvia] 100 mg PO DAILY 09/09/18 Simvastatin [Zocor] 40 mg PO BEDTIME 09/09/18 Spironolactone [Aldactone] 25 mg PO DAILY 09/09/18 Warfarin Sodium [Coumadin] 5 mg PO DAILY 09/09/18 Warfarin Sodium [Coumadin] 7.5 mg PO DAILY 09/09/18 Wheat Dextrin [Benefiber] 1 pow PO DAILY 09/09/18 diphenhydrAMINE HCL [Benadryl] 25 mg PO BEDTIME PRN 09/09/18 Review of Systems - Review of Systems Constitutional: States: weakness. Denies: chills, diaphoresis, fever, malaise EENTM: States: no symptoms reported Respiratory: Denies: cough, short of breath, wheezing Cardiology: Denies: chest pain, edema, palpitations Gastrointestinal/Abdominal: Denies: abdominal pain, nausea Genitourinary: States: no symptoms reported Musculoskeletal: States: no symptoms reported Skin: States: no symptoms reported Neurological: States: weakness. Denies: headache Endocrine: States: no symptoms reported Hematologic/Lymphatic: States: no symptoms reported All other Systems: Reviewed and Negative Past Medical History (General) - Patient Medical History Hx Seizures: No Hx Stroke: No Hx Asthma: No Hx of COPD: No Hx Cardiac Disorders: Yes - [place]; cardiac ablation Hx Congestive Heart Failure: No Hx Pacemaker: Yes Hx Hypertension: Yes Hx Diabetes: No Hx Gastroesophageal Reflux: Yes Hx Cancer: No Hx Hepatitis C: No Hx MRSA: No Surgical History: pacemaker - Vaccination History Hx Tetanus, Diphtheria Vaccination: No Hx Influenza Vaccination: Yes Hx Pneumococcal Vaccination: No Immunizations Up to Date: No - Social History Hx Tobacco Use: No Hx Alcohol Use: No Hx Substance Use: No Hx Substance Use Treatment: No Hx Depression: No Hx Physical Abuse: No Hx Emotional Abuse: No - Female History Patient : No Family Medical History - Family History Father Living Status: Age at (years of age): 60 Cause of : [place] Hx Family Asthma: Yes - mom Hx Family Hypertension: Yes Hx Cardiac Disease: Yes - dad Mother Family History: Unknown Living Status: Hx Family Asthma: Yes Physical Exam - Physical Exam General Appearance: Alert, No apparent distress Eye Exam: bilateral normal Ears, Nose, Throat: hearing grossly normal, normal ENT inspection Neck: supple, normal inspection Respiratory: chest non-tender, lungs clear, normal breath sounds, no respiratory distress, no accessory muscle use Cardiovascular/Chest: regular rate, rhythm, no JVD, other - S1 HAS A MECHANICAL SOUND, FROM THE LVAD. Peripheral Pulses: radial,right: 1+, radial,left: 1+, dorsalis pedis,right: 1+, dorsalis pedis,left: 1+, posterior tibialis,right: 1+, posterior tibialis,left: 1+ Gastrointestinal/Abdominal: normal bowel sounds, non tender, no pulsatile mass Back Exam: normal inspection, no CVA tenderness Extremity: normal range of motion, normal inspection, no pedal edema Neurologic: no motor/sensory deficits, alert, normal mood/affect Skin Exam: normal color, warm/dry Lymphatic: no adenopathy Progress - Progress Progress: 09/09/18 12:27 CMP: Na 133. CBC: HGB 11, MICROCYTIC, HYPOCHROMIC. LIKELY FROM ANEMIA OF CHRONIC DZ (CHF, DM, ETC). CARDIAC ENZ NEG. CXR NEG. EKG NEG FOR ACUTE ST CHANGES. COAGS: INR 1.89. PT IS ON COUMADIN, SO JUST SUBTHERAPEUTIC FOR 2-3 RANGE. PACEMAKER DISCHARGE TODAY - CARDIAC W/U NEG FOR ACUTE EVENTS AND PT HAS NO CARDIORESPIRATORY SX. SAFE FOR DC TO HOME. I EMPHASIZED THE IMPORTANCE OF SEEING HIS WHOLESALE ACCOUNT EXECUTIVE NEXT WEEK TO REVIEW THE DEFIBRILLATOR TO ASCERTAIN WHY IT DISCHARGED, IF IT WAS AN APPROPRIATE OR INAPPROPRIATE DISCHARGE, AND IF ANY ADJUSTMENT IN ICD SETTINGS MIGHT BE NEEDED. Departure - Departure Clinical Impression: Defibrillator discharge, Generalized weakness, Anemia of chronic disease, Hyponatremia Disposition: Discharge to Home or Self Care Condition: Fair Departure Forms: ED Discharge - Pt. Copy, Patient Portal Self Enrollment Instructions: Heart Failure, Adult (DC) Diet: resume usual diet Activity: increase activity as tolerated Referrals: Gareth Jeffrey MD [Primary Care Provider] - 1-2 Weeks Home Medications: Ambulatory Orders Fluoxetine HCl [Prozac] 20 mg PO DAILY 07/01/15 Omeprazole Magnesium [Prilosec Otc] 20 mg PO ACBK 07/01/15 Carvedilol [Coreg] 6.25 mg PO BID 11/14/16 Mexiletine HCl 150 mg PO TID 11/14/16 Aspirin [(None)] 325 mg PO QD 09/09/18 Calcium Carbonate [Chewable Calcium] 500 mg PO TID 09/09/18 Cetirizine HCl [Zyrtec Allergy] 10 mg PO DAILY 09/09/18 Furosemide [Lasix] 20 mg PO .2XWK 09/09/18 Lisinopril 5 mg PO DAILY 09/09/18 Multiple Vitamin [Multi Vitamin] 1 tab PO DAILY 09/09/18 SITagliptin [Januvia] 100 mg PO DAILY 09/09/18 Simvastatin [Zocor] 40 mg PO BEDTIME 09/09/18 Spironolactone [Aldactone] 25 mg PO DAILY 09/09/18 Warfarin Sodium [Coumadin] 5 mg PO DAILY 09/09/18 Warfarin Sodium [Coumadin] 7.5 mg PO DAILY 09/09/18 Wheat Dextrin [Benefiber] 1 pow PO DAILY 09/09/18 diphenhydrAMINE HCL [Benadryl] 25 mg PO BEDTIME PRN 09/09/18 Additional Instructions: Please call your special machine operator today, Dr. Whitlock, to schedule an ER follow-up appointment for the same day you are seeing the digestive doctor.
[2018-09-09 10:30] VITALS: TEMP 97.9
--- NOTE | 2018-09-09 10:51 | RAD ---
EXAM DESCRIPTION: Chest,1 View CLINICAL HISTORY: ICD shocked pt this morning x 1. COMPARISON: None available FINDINGS: A multilead cardiac pacemaker remains in place. Again seen are postoperative changes in the mediastinum. There is no airspace consolidation or pleural effusion. The bronchovascular markings are within normal limits, and the lungs are not hyperinflated. There is no pneumothorax or acute fracture. IMPRESSION: Postoperative changes in the mediastinum and cardiac pacemaker, but no acute intrathoracic abnormality. Electronically signed by: Gustabo Longoria MD 09/09/2018 10:49 AM [facility]
[2018-09-09 12:49] VITALS: O2SAT 97
== END 2018-09-09 12:49 | disposition home or self-care (01) ==
LOC: ER 09:55
DX: T82.897A Other specified complication of cardiac prosthetic devices, implants and grafts, initial encounter (principal); R53.1 Weakness; E87.1 Hypo-osmolality and hyponatremia; D63.8 Anemia in other chronic diseases classified elsewhere; I25.2 Old myocardial infarction; I10 Essential (primary) hypertension; K21.9 Gastro-esophageal reflux disease without esophagitis; Z95.810 Presence of automatic (implantable) cardiac defibrillator; Z79.01 Long term (current) use of anticoagulants; Z79.82 Long term (current) use of aspirin; Z79.899 Other long term (current) drug therapy